=== PATIENT | female | born 1945 | race African-American/Black ===

== ENCOUNTER → 2016-12-26 | Outpatient (CLI) | payer MEDICARE, OTHER ==
[~2016-12-26] MED LIST: ACET-2178 PO; AMLO10TA80 PO; HYDR100T26 PO; HYDR12.529 PO; IOHEXOL-350 100 ML BOTTLE ONE; METO50TA5 PO; SODIUM CHLORIDE 0.9% 10ML VIAL ONE
== END | disposition home or self-care (01) ==
LOC: CT 07:13
DX: D35.00 Benign neoplasm of unspecified adrenal gland (principal); K76.89 Other specified diseases of liver
CPT/HCPCS: 74175; A4216; Q9967

== ENCOUNTER 2017-01-27 10:18 | Emergency (ER) | payer MEDICARE, OTHER ==
[~2017-01-27] VITALS: Ht 160 cm; Wt 81.0 kg
[~2017-01-27 10:18] MED LIST changes: -IOHEXOL-350 100 ML BOTTLE ONE; -SODIUM CHLORIDE 0.9% 10ML VIAL ONE
[2017-01-27 10:32] VITALS: BP 147/81
== END 2017-01-27 12:36 | disposition left against medical advice (07) ==
LOC: ER 12:36
DX: R03.0 Elevated blood-pressure reading, without diagnosis of hypertension (principal); Z53.21 Procedure and treatment not carried out due to patient leaving prior to being seen by health care provider